=== PATIENT | female | born 1985 | race Two or more races ===

== ENCOUNTER 2017-09-02 07:57 | Inpatient (IN) | payer OTHER ==
[2017-09-02 11:30] LABS: HEMATOCRIT 38.4 % (37.0-47.0); HEMOGLOBIN 12.7 g/dl (12.0-16.0); MEAN CORPUSCULAR HGB CONC 33.1 g/dl (32.0-37.0); MEAN CORPUSCULAR VOLUME 72.6 fl (82.0-101.0); MEAN PLATELET VOLUME 10.4 fl (7.4-10.4); PLATELET COUNT 280 10^3/UL (140-415); RED BLOOD COUNT 5.29 10^6/ul (4.20-5.40); RED CELL DISTRIBUTION WIDTH 13.7 % (11.5-14.5)
[2017-09-02 11:30] LABS: WHITE BLOOD COUNT 6.8 10^3/ul (4.8-10.8)
[2017-09-02] MEDS ORDERED: NACL 0.9% 3 ML SYG IV (11:30)
[2017-09-02] MEDS ORDERED: BISACODYL (EC) 5 MG TAB PO (11:30)
[2017-09-02] MEDS ORDERED: DOCUSATE SODIUM 100 MG CAP PO (11:30)
[2017-09-02 11:31] LABS: ADD MAN DIFF? YES; POSITIVE DIFF @See below
[2017-09-02 11:47] LABS: ALBUMIN/GLOBULIN RATIO 0.73; ALKALINE PHOSPHATASE 142 IU/L (42-121); ANION GAP 10 (8-16); ASPARTATE AMINO TRANSFERASE 418 IU/L (15-46); BILIRUBIN,INDIRECT 0.9 mg/dl (0-1.1); BLOOD UREA NITROGEN 6 mg/dl (7-20); CALCIUM 7.6 mg/dl (8.4-10.2); CARBON DIOXIDE 24 mmol/L (21-31); CHLORIDE 102 mmol/L (97-110); CREATININE 0.83 mg/dl (0.44-1.00); GLUCOSE 104 mg/dl (70-220); POTASSIUM 4.1 mmol/L (3.5-5.1); SODIUM 132 mmol/L (135-144); TOTAL PROTEIN 7.1 g/dl (6.1-8.1)
[2017-09-02 11:52] LABS: BAND NEUTROPHILS % (M) 1 % (0-4); BASOPHILS % (M) 1 % (0-2); HYPOCHROMASIA 2+ (0-0); LYMPHOCYTES % (M) 16 % (15-51); MONOCYTE #M 0.7 10^3/ul (0.3-0.9); MONOCYTES % (M) 11 % (0-11); PLATELET ESTIMATE NORMAL; REACTIVE LYMPHOCYTES #M 0.4 10^3/ul (0.0-0.0); REACTIVE LYMPHOCYTES% (M) 6 % (0-0); SEG NEUT #M 4.4 10^3/ul (1.7-7.5); SEGMENTED NEUTROPHILS (M) % 65 % (39-77); SMUDGE%M 9 % (0-0)
[2017-09-02 11:56] LABS: IRON 86 ug/dl (35-150)
[2017-09-02 12:07] LABS: % IRON SATURATION 35 % SAT (22-52); TOTAL IRON BINDING CAPACITY 243 ug/dl (241-421)
[2017-09-02 12:12] LABS: ALANINE AMINOTRANSFERASE 1234 IU/L (13-69)
[2017-09-02] MEDS ORDERED: traMADol 50 MG TAB PO (13:00)
[2017-09-02] MEDS: CITALOPRAM 20 MG TAB PO (13:21)
[2017-09-02] MEDS: PREGABALIN 50 MG CAP PO ×2 (13:21→21:18)
[2017-09-02] MEDS: TOPIRAMATE 25 MG TAB PO ×2 (13:21→20:16)
[2017-09-02 18:17] LABS: HEPATITIS B SURFACE ANTIGEN NEGATIVE (NEGATIVE)
[2017-09-02 18:28] LABS: HEPATITIS B SURFACE ANTIBODY NEGATIVE (NEGATIVE)
[2017-09-02 18:49] LABS: HEPATITIS B CORE ANTIBODY NEGATIVE (NEGATIVE); HEPATITIS C VIRAL ANTIBODY NEGATIVE (NEGATIVE)
[2017-09-02] MEDS: hydrOXYzine HCL 10 MG TAB PO (20:15)
[2017-09-02] MEDS: DIVALPROEX (EC) 250 MG TAB PO (20:16)
[2017-09-02] MEDS: FAMOTIDINE 20 MG TAB PO (20:16)
[2017-09-02] MEDS: FLUTICASONE 0.05% 16 GM NAS SPRAY NASAL (20:16)
[2017-09-02] MEDS: clonAZEPAM 0.5 MG TAB PO (21:18)
[2017-09-03] MEDS ORDERED: IBUPROFEN 200 MG TAB PO (01:00)
[2017-09-03] MEDS ORDERED: IBUPROFEN 400 MG TAB (02:03)
[2017-09-03] MEDS: IBUPROFEN 400 MG TAB PO (02:23)
[2017-09-03] MEDS: LEVOFLOXACIN 500MG/D5W (PMX) 100 ML IVPB (02:23)
[2017-09-03 05:09] LABS: ADD MAN DIFF? NO
[2017-09-03 05:16] LABS: HEMATOCRIT 39.9 % (37.0-47.0); HEMOGLOBIN 13.5 g/dl (12.0-16.0); MEAN CORPUSCULAR HEMOGLOBIN 24.2 pg (29.0-33.0); MEAN CORPUSCULAR HGB CONC 33.8 g/dl (32.0-37.0); MEAN CORPUSCULAR VOLUME 71.5 fl (82.0-101.0); PLATELET COUNT 301 10^3/UL (140-415); RED BLOOD COUNT 5.58 10^6/ul (4.20-5.40); RED CELL DISTRIBUTION WIDTH 14.4 % (11.5-14.5)
[2017-09-03 05:16] LABS: WHITE BLOOD COUNT 7.9 10^3/ul (4.8-10.8)
[2017-09-03 05:25] LABS: POSITIVE DIFF @See below
[2017-09-03 05:36] LABS: ALANINE AMINOTRANSFERASE 983 IU/L (13-69); ALBUMIN 3.3 g/dl (3.3-4.9); ALBUMIN/GLOBULIN RATIO 0.63; ALKALINE PHOSPHATASE 156 IU/L (42-121); ANION GAP 16 (8-16); ASPARTATE AMINO TRANSFERASE 303 IU/L (15-46); BILIRUBIN,TOTAL 4.9 mg/dl (0.2-1.3); BLOOD UREA NITROGEN 4 mg/dl (7-20); CALCIUM 8.7 mg/dl (8.4-10.2); CARBON DIOXIDE 25 mmol/L (21-31); CHLORIDE 102 mmol/L (97-110); CREATININE 0.99 mg/dl (0.44-1.00); GLUCOSE 126 mg/dl (70-220); POTASSIUM 3.9 mmol/L (3.5-5.1); SODIUM 139 mmol/L (135-144); TOTAL PROTEIN 8.5 g/dl (6.1-8.1)
[2017-09-03 06:53] LABS: ADD UMIC NO; UR ASCORBIC ACID NEGATIVE (NEGATIVE); UR BILIRUBIN (Dip) 1+ mg/dL (NEGATIVE); UR BLOOD (Dip) NEGATIVE (NEGATIVE); UR CLARITY CLEAR (CLEAR); UR COLOR AMBER (YELLOW); UR GLUCOSE (Dip) NEGATIVE (NEGATIVE); UR KETONES (Dip) NEGATIVE (NEGATIVE); UR LEUKOCYTE ESTERASE (Dip) NEGATIVE Leu/ul (NEGATIVE); UR NITRITE (Dip) NEGATIVE (NEGATIVE); UR SPECIFIC GRAVITY (Dip) 1.008 (1.003-1.030); UR TOTAL PROTEIN (Dip) NEGATIVE (NEGATIVE); UR UROBILINOGEN (Dip) NEGATIVE (NEGATIVE)
[2017-09-03] MEDS: FLUTICASONE 0.05% 16 GM NAS SPRAY NASAL ×2 (08:28→22:24)
[2017-09-03] MEDS: PREGABALIN 50 MG CAP PO ×3 (08:29→21:00)
[2017-09-03] MEDS: FAMOTIDINE 20 MG TAB PO ×2 (08:29→21:00)
[2017-09-03] MEDS: DIVALPROEX (EC) 250 MG TAB PO ×2 (08:29→22:24)
[2017-09-03] MEDS: CHOLECALCIFEROL 400 UNITS TAB PO (08:29)
[2017-09-03] MEDS: MAGNESIUM OXIDE 400 MG TAB PO (08:30)
[2017-09-03] MEDS: TOPIRAMATE 25 MG TAB PO ×2 (08:30→22:25)
[2017-09-03] MEDS: CITALOPRAM 20 MG TAB PO (08:30)
[2017-09-03] MEDS: LORATADINE 10 MG TAB PO (08:30)
[2017-09-03 09:13] LABS: ANISOCYTOSIS 1+ (0-0); BAND NEUTROPHILS #M 0.7 10^3/ul (0.0-0.6); BAND NEUTROPHILS % (M) 10 % (0-4); EOSINOPHILS % (M) 3 % (0-7); GIANT THROMBO% (M) 2 % (0-0); LYMPHOCYTES #M 2.1 10^3/ul (0.8-2.9); LYMPHOCYTES % (M) 27 % (15-51); MONOCYTE #M 0.7 10^3/ul (0.3-0.9); MONOCYTES % (M) 9 % (0-11); PLATELET ESTIMATE NORMAL; REACTIVE LYMPHOCYTES #M 0.2 10^3/ul (0.0-0.0); REACTIVE LYMPHOCYTES% (M) 3 % (0-0); SEG NEUT #M 3.8 10^3/ul (1.7-7.5); SEGMENTED NEUTROPHILS (M) % 48 % (39-77); SMUDGE%M 6 % (0-0)
[2017-09-03 11:27] LABS: CHOLESTEROL 97 mg/dl (100-200)
[2017-09-03 11:27] LABS: CHOL/HDL RATIO 12.1 RATIO; HDL CHOLESTEROL 8 mg/dl (34-82); LDL CHOLESTEROL,CALCULATED 41 mg/dl; TRIGLYCERIDES 241 mg/dl (0-149)
[2017-09-03 11:30] LABS: HEMOGLOBIN A1C 5.9 % (0-5.9)
[2017-09-03] MEDS: clonAZEPAM 0.5 MG TAB PO (21:00)
[2017-09-03] MEDS: hydrOXYzine HCL 10 MG TAB PO (21:00)
[2017-09-04] MEDS: LEVOFLOXACIN 500MG/D5W (PMX) 100 ML IVPB (01:03)
[2017-09-04 05:48] LABS: WHITE BLOOD COUNT 7.2 10^3/ul (4.8-10.8)
[2017-09-04 05:48] LABS: HEMATOCRIT 37.5 % (37.0-47.0); HEMOGLOBIN 12.5 g/dl (12.0-16.0); MEAN CORPUSCULAR HEMOGLOBIN 23.8 pg (29.0-33.0); MEAN CORPUSCULAR HGB CONC 33.3 g/dl (32.0-37.0); MEAN CORPUSCULAR VOLUME 71.4 fl (82.0-101.0); MEAN PLATELET VOLUME 10.2 fl (7.4-10.4); PLATELET COUNT 296 10^3/UL (140-415); RED BLOOD COUNT 5.25 10^6/ul (4.20-5.40)
[2017-09-04 05:52] LABS: ADD MAN DIFF? YES; POSITIVE DIFF @See below
[2017-09-04 06:01] LABS: INR 1.19; PROTIME 15.3 Sec (11.9-14.9); PT RATIO 1.2
[2017-09-04 06:02] LABS: PARTIAL THROMBOPLASTIN TIME 32.1 Sec (25.0-35.0)
[2017-09-04 06:07] LABS: MAGNESIUM 1.5 mg/dl (1.7-2.5)
[2017-09-04 06:07] LABS: PHOSPHORUS 3.1 mg/dl (2.5-4.9)
[2017-09-04 06:24] LABS: ALANINE AMINOTRANSFERASE 640 IU/L (13-69); ALBUMIN/GLOBULIN RATIO 0.62; ALKALINE PHOSPHATASE 141 IU/L (42-121); ANION GAP 12 (8-16); ASPARTATE AMINO TRANSFERASE 169 IU/L (15-46); BILIRUBIN,INDIRECT 0.8 mg/dl (0-1.1); BILIRUBIN,TOTAL 3.9 mg/dl (0.2-1.3); BLOOD UREA NITROGEN 4 mg/dl (7-20); CALCIUM 8.4 mg/dl (8.4-10.2); CARBON DIOXIDE 22 mmol/L (21-31); CHLORIDE 104 mmol/L (97-110); CREATININE 0.87 mg/dl (0.44-1.00); GLUCOSE 96 mg/dl (70-220); POTASSIUM 3.9 mmol/L (3.5-5.1); SODIUM 134 mmol/L (135-144); TOTAL PROTEIN 7.8 g/dl (6.1-8.1)
[2017-09-04] MEDS: ONDANSETRON 4 MG TAB PO (08:28)
[2017-09-04] MEDS: FLUTICASONE 0.05% 16 GM NAS SPRAY NASAL (09:00)
[2017-09-04] MEDS: MAGNESIUM OXIDE 400 MG TAB PO (09:00)
[2017-09-04] MEDS: LORATADINE 10 MG TAB PO (09:00)
[2017-09-04] MEDS: CHOLECALCIFEROL 400 UNITS TAB PO (09:00)
[2017-09-04 09:32] LABS: ANISOCYTOSIS 1+ (0-0); BAND NEUTROPHILS #M 0.8 10^3/ul (0.0-0.6); BAND NEUTROPHILS % (M) 12 % (0-4); EOSINOPHILS % (M) 2 % (0-7); GIANT THROMBO% (M) 3 % (0-0); HYPOCHROMASIA 2+ (0-0); LYMPHOCYTES #M 1.8 10^3/ul (0.8-2.9); LYMPHOCYTES % (M) 25 % (15-51); MICROCYTOSIS 1+ (0-0); MONOCYTE #M 0.5 10^3/ul (0.3-0.9); MONOCYTES % (M) 8 % (0-11); OVALOCYTES 1+ (0-0); PLATELET ESTIMATE NORMAL; POLYCHROMASIA 1+ (0-0); REACTIVE LYMPHOCYTES #M 0.2 10^3/ul (0.0-0.0); REACTIVE LYMPHOCYTES% (M) 3 % (0-0); ROULEAU 1+ (0-0); SEG NEUT #M 3.4 10^3/ul (1.7-7.5); SEGMENTED NEUTROPHILS (M) % 46 % (39-77); SMUDGE%M 14 % (0-0)
[2017-09-04] MEDS: PREGABALIN 50 MG CAP PO ×2 (10:22→13:29)
[2017-09-04] MEDS: CITALOPRAM 20 MG TAB PO (10:22)
[2017-09-04] MEDS: DIVALPROEX (EC) 250 MG TAB PO (10:23)
[2017-09-04] MEDS: FAMOTIDINE 20 MG TAB PO (10:23)
[2017-09-04] MEDS: TOPIRAMATE 25 MG TAB PO (10:23)
[2017-09-04] MEDS: MAGNESIUM SULFATE 2 GM/50 ML 50 ML IVPB (12:19)
[2017-09-04 13:28] LABS: ANA SCREEN NEGATIVE (NEGATIVE); MITOCHONDRIAL TB NEGATIVE (NEGATIVE); SMOOTH MUSCLE AB SCREEN POSITIVE (NEGATIVE)
[2017-09-04] MEDS: MAGNESIUM CHLORIDE (SR) 64 MG TAB PO (13:29)
[2017-09-04 15:42] LABS: CERULOPLASMIN 33 mg/dL (18-53)
== END 2017-09-04 17:40 | disposition home or self-care (01) | DRG 443 ==
LOC: MS1 07:57
DX: B17.9 Acute viral hepatitis, unspecified (principal); E66.01 Morbid (severe) obesity due to excess calories; E78.5 Hyperlipidemia, unspecified; F31.9 Bipolar disorder, unspecified; G89.21 Chronic pain due to trauma; G43.909 Migraine, unspecified, not intractable, without status migrainosus; F41.9 Anxiety disorder, unspecified; Z68.39 Body mass index [BMI] 39.0-39.9, adult
CPT/HCPCS: 74181; 74182; 80053; 80061; 81003; 82390; 82728; 83036; 83540; 83735; 84100; 84703; 85025; 85610; 85730; 86038; 86255; 86704; 86706; 86708; 86709; 86803; 87040; 87086; 87340